=== PATIENT | male | born 1960 | race Caucasian/White ===

== ENCOUNTER 2017-02-08 22:47 | Emergency (ER) | payer BC ==
[2017-02-08 23:08] VITALS: BP 95/64
[2017-02-08] MEDS ORDERED: Clindamycin HCl 150 MG Cap PO ONE (23:13)
--- NOTE | 2017-02-08 23:19 | EDM.PDOC ---
ED HPI Skin/Rash - General Chief Complaint: Skin Complaint Stated Complaint: R LEG SWELLING Time Seen by Provider: 02/08/17 23:14 Source: Reports: Patient History Limitations: Reports: No limitations - History of Present Illness INITIAL COMMENTS - FREE TEXT/NARRATIVE: long h/o itchy rash seen many docs and used many Rx. states eucerin & cortisone cream work but out of. - Related Data Allergies Allergy/AdvReac Type Severity Reaction Status Date / Time amoxicillin Allergy Cannot Verified 04/27/15 18:35 Remember clavulanic acid Allergy Cannot Verified 02/08/17 23:00 [From Augmentin] Remember Home Meds: Ambulatory Orders Medication Instructions Recorded Confirmed Ibuprofen [Motrin] 400 mg PO ASDIRECTED PRN 04/27/15 04/27/15 Past Medical History - Past Health History Medical/Surgical History: Denies Medical/Surgical History Cardiovascular History: Reports: [place] Other Gastrointestinal History: inguinal hernia Musculoskeletal History: Reports: Osteoarthritis, Other (see below) Other Musculoskeletal History: fracture left wrist - Infectious Disease History Infectious Disease History: Reports: None - Past Surgical History HEENT Surgical History: Reports: Tonsillectomy Social & Family History - Family History Family Medical History: Noncontributory - Tobacco Use Smoking Status *Q: Never Smoker Second Hand Smoke Exposure: No - Caffeine Use Caffeine Use: Reports: Soda - Recreational Drug Use Recreational Drug Use: No ED ROS GENERAL - Review of Systems Review Of Systems: ROS reveals no pertinent complaints other than HPI. ED EXAM, SKIN/RASH Exam: See Below Exam Limited By: No limitations General Appearance: alert, WD/WN, mild distress, other (itch) Ears: hearing grossly normal Throat/Mouth: Normal voice, No airway compromise Head: atraumatic Neck: supple, non-tender Respiratory/Chest: no respiratory distress Cardiovascular: regular rate, rhythm GI/Abdominal: soft, non tender Neurological: alert, oriented, normal cognition, normal gait, no motor/sensory deficits Psychiatric: normal affect, normal mood Skin: Rash, Other (dried pruritic) Location, Skin: lower extremity, right Associated features: warmth, inflammation Lymphatic: no adenopathy Course - Vital Signs Last Recorded V/S: Last Vital Signs Temp 36.7 C 02/08/17 23:05 Pulse 86 02/08/17 23:05 Resp 16 02/08/17 23:05 BP 95/64 02/08/17 23:05 Pulse Ox 98 02/08/17 23:05 - Orders/Labs/Meds Orders: Active Orders 24 hr Category Date Time Status Clindamycin HCl [Cleocin] Med 02/08/17 23:13 Once 150 mg PO ONETIME ONE Departure - Departure Time of Disposition: 23:16 Disposition: Home, Self-Care 01 Condition: good Clinical Impression: Atopic dermatitis Qualifiers: Atopic dermatitis type: unspecified Qualified Code(s): L20.9 - Atopic dermatitis, unspecified Cellulitis Qualifiers: Site of cellulitis of extremity: lower extremity Laterality: right Instructions: Rash Forms: ED Department Discharge Additional Instructions: 1) don't scratch too much 2) continue with eucerin and cortisone creams 3) follow up at clinic or recheck as needed rx given: clindamycin 150mg qid x 40 - My Orders Last 24 Hours: My Active Orders 02/08/17 23:13 Clindamycin HCl [Cleocin] 150 mg PO ONETIME ONE - Assessment/Plan Last 24 Hours: My Active Orders 02/08/17 23:13 Clindamycin HCl [Cleocin] 150 mg PO ONETIME ONE
== END 2017-02-08 23:27 | disposition home or self-care (01) ==
LOC: DL.ED 22:47
DX: L03.115 Cellulitis of right lower limb (principal); L20.9 Atopic dermatitis, unspecified; I25.2 Old myocardial infarction; Z98.890 Other specified postprocedural states; Z88.8 Allergy status to other drugs, medicaments and biological substances
CPT/HCPCS: 99283; A9270

== ENCOUNTER 2017-09-30 22:51 | Emergency (ER) | payer BC ==
[2017-09-30] MEDS ORDERED: Ibuprofen 600 MG Tab PO ONE (23:55)
--- NOTE | 2017-10-01 01:37 | EDM.PDOC ---
ED HPI GENERAL MEDICAL PROBLEM - General Chief Complaint: Back Pain or Injury Stated Complaint: BACK AND ANKLE PAIN [phone] Time Seen by Provider: 10/01/17 00:30 Source of Information: Reports: Patient History Limitations: Reports: No Limitations - History of Present Illness INITIAL COMMENTS - FREE TEXT/NARRATIVE: ED with c/o low back pain, chronic, worse after fall on ice one month ago. Since fall has had intermittent numbness radiating down left outer leg. Worse tonight. Has been seen by chiroproactor but not noted any change in pain. Has no PCP and not seen in clinic. Occasional use of ibuprofen. No fever or chills , no Lower Back Pain Score (Numeric/FACES): 7 - Related Data Allergies Allergy/AdvReac Type Severity Reaction Status Date / Time amoxicillin Allergy Cannot Verified 09/30/17 23:45 Remember clavulanic acid Allergy Cannot Verified 09/30/17 23:45 [From Augmentin] Remember Past Medical History - Past Health History Medical/Surgical History: Denies Medical/Surgical History HEENT History: Reports: Impaired Vision Cardiovascular History: Reports: [place] Gastrointestinal History: Reports: Other (See Below) Other Gastrointestinal History: inguinal hernia Musculoskeletal History: Reports: Fracture, Osteoarthritis, Other (See Below) Other Musculoskeletal History: Fx left wrist. - Infectious Disease History Infectious Disease History: Reports: None - Past Surgical History HEENT Surgical History: Reports: Tonsillectomy Social & Family History - Family History Family Medical History: Noncontributory - Tobacco Use Smoking Status *Q: Never Smoker Second Hand Smoke Exposure: No - Caffeine Use Caffeine Use: Reports: Soda - Recreational Drug Use Recreational Drug Use: No ED ROS GENERAL - Review of Systems Review Of Systems: See Below Constitutional: Reports: No Symptoms HEENT: Reports: No Symptoms Respiratory: Reports: No Symptoms Cardiovascular: Reports: No Symptoms Endocrine: Reports: No Symptoms GI/Abdominal: Reports: No Symptoms Musculoskeletal: Reports: Back Pain (left lumbar ) Skin: Reports: No Symptoms Neurological: Reports: Numbness, Paresthesia (outer leg) ED EXAM,LOWER BACK PAIN/INJURY - Physical Exam Exam: See Below Exam Limited By: No Limitations General Appearance: Alert, No Apparent Distress Eye Exam: Bilateral Eye: EOMI Ears: Normal External Exam Nose: Normal Inspection Throat/Mouth: Normal Voice Head: Atraumatic, Normocephalic Neck: Normal Inspection Respiratory/Chest: No Respiratory Distress Cardiovascular: Normal Peripheral Pulses Back Exam: Paraspinal Tenderness (left lumbar), Vertebral Tenderness (mild lumbar with deep palpation) Neurological: Alert, Normal Mood/Affect, Normal Dorsiflexion, Normal Plantar Flexion, No Motor/Sensory Deficits, Oriented x 3, Straight Leg Raise (L). No: Abnormal Sensation, Straight Leg Raise (R), Difficulty Walking Psychiatric: Normal Affect Skin Exam: Warm, Dry, Intact, Normal Color Course - Vital Signs Last Recorded V/S: Last Vital Signs Temp 97.2 F 10/01/17 00:47 Pulse 62 10/01/17 00:47 Resp 16 10/01/17 00:47 BP 107/71 10/01/17 00:47 Pulse Ox 99 10/01/17 00:47 - Orders/Labs/Meds Orders: Active Orders 24 hr Category Date Time Status Lumbar Spine wo Cont [CT] Urgent Exams 10/01/17 01:13 Taken Meds: Medications Discontinued Medications Generic Name Dose Route Start Last Admin Trade Name Kieranq PRN Reason Stop Dose Admin Ibuprofen 600 mg 09/30/17 23:55 09/30/17 23:59 Motrin PO 09/30/17 23:56 600 mg ONETIME ONE Administration Departure - Departure Time of Disposition: 02:52 Disposition: Home, Self-Care 01 Condition: Good Clinical Impression: L4-L5 disc bulge - Discharge Information Instructions: Back Pain, Adult, [id number] Referrals: PCP,None [Primary Care Provider] - Forms: ED Department Discharge Additional Instructions: follow up in clinic L4-L5 disc bulge If weakness, unable to control bowel or bladder follow up urgently prednisone 20mg x 5 days then 10mg x 5 days tylenol every 4 hours as needed do not take ibuprofen while taking prednisone - My Orders Last 24 Hours: My Active Orders 10/01/17 01:13 Lumbar Spine wo Cont [CT] Urgent - Assessment/Plan Last 24 Hours: My Active Orders 10/01/17 01:13 Lumbar Spine wo Cont [CT] Urgent
[2017-10-01] MEDS ORDERED: predniSONE 20 MG Tab PO ONE (02:55)
[2017-10-01 03:07] VITALS: BP 107/77
== END 2017-10-01 03:10 | disposition home or self-care (01) ==
LOC: DL.ED 22:51
DX: M51.86 Other intervertebral disc disorders, lumbar region (principal); Z88.1 Allergy status to other antibiotic agents
CPT/HCPCS: 72131; 99283; A9270

== ENCOUNTER 2019-03-10 14:34 | Emergency (ER) | payer BC ==
[2019-03-10 14:50] VITALS: BP 99/73
--- NOTE | 2019-03-10 15:40 | CR ---
Clinical history: 58-year-old male "smash" right ankle between trailer and lawnmower. Interpretation: Asymmetric pronounced soft tissue swelling over the lateral malleolus. No underlying fracture or dislocation right ankle. Prominent heel spurs at the insertion Achilles tendon and plantar aponeurosis on the os calcis. CONCLUSION: Right Ankle sprain. No fractures. Heel spurs.
--- NOTE | 2019-03-10 15:48 | EDM.PDOC ---
ED HPI GENERAL MEDICAL PROBLEM - General Chief Complaint: Lower Extremity Injury/Pain Stated Complaint: INJURED RT LEG Time Seen by Provider: 03/10/19 15:09 Source of Information: Reports: Patient, RN, RN Notes Reviewed History Limitations: Reports: No Limitations - History of Present Illness INITIAL COMMENTS - FREE TEXT/NARRATIVE: Patient presents to ER with complaint of right lower leg pain after getting leg smashed between a crane assembler and a trailer. States it happened about 1/2 hour prior to arrival. Rates pain 05/22. Onset: Today Duration: Constant Location: Reports: Lower Extremity, Right Quality: Reports: Ache Severity: Mild Improves with: Reports: None Worsens with: Reports: None Associated Symptoms: Reports: No Other Symptoms Right Ankle Pain Score (Numeric/FACES): 8 - Related Data Allergies Allergy/AdvReac Type Severity Reaction Status Date / Time amoxicillin Allergy Cannot Verified 03/10/19 14:47 Remember clavulanic acid Allergy Cannot Verified 03/10/19 14:47 [From Augmentin] Remember Home Meds: Home Meds Aspirin [Adult Low Dose Aspirin EC] 81 mg PO DAILY 09/01/18 [History] Past Medical History - Past Health History Medical/Surgical History: Denies Medical/Surgical History HEENT History: Reports: Impaired Vision Cardiovascular History: Reports: [place] Respiratory History: Reports: None Gastrointestinal History: Reports: Other (See Below) Other Gastrointestinal History: inguinal hernia Genitourinary History: Reports: None Musculoskeletal History: Reports: Fracture, Osteoarthritis, Other (See Below) Other Musculoskeletal History: Fx left wrist. Neurological History: Reports: None Psychiatric History: Reports: None Endocrine/Metabolic History: Reports: None Hematologic History: Reports: None Immunologic History: Reports: None Oncologic (Cancer) History: Reports: None Dermatologic History: Reports: None - Infectious Disease History Infectious Disease History: Reports: None - Past Surgical History Head Surgeries/Procedures: Reports: None HEENT Surgical History: Reports: Tonsillectomy GI Surgical History: Reports: Hernia, Inguinal Social & Family History - Family History Family Medical History: Noncontributory - Tobacco Use Smoking Status *Q: Never Smoker Second Hand Smoke Exposure: No - Caffeine Use Caffeine Use: Reports: None - Recreational Drug Use Recreational Drug Use: No Review of Systems - Review of Systems Review Of Systems: ROS reveals no pertinent complaints other than HPI. ED EXAM, GENERAL - Physical Exam Exam: See Below Exam Limited By: No Limitations General Appearance: Alert, WD/WN, No Apparent Distress Eye Exam: Bilateral Eye: EOMI, Normal Inspection, PERRL Ears: Normal External Exam, Normal Canal, Hearing Grossly Normal, Normal TMs Nose: Normal Inspection, Normal Mucosa, No Blood Throat/Mouth: Normal Inspection, Normal Lips, Normal Teeth, Normal Gums, Normal Oropharynx, Normal Voice, No Airway Compromise Head: Atraumatic, Normocephalic Neck: Normal Inspection, Supple, Non-Tender, Full Range of Motion Respiratory/Chest: No Respiratory Distress, Lungs Clear, Normal Breath Sounds, No Accessory Muscle Use, Chest Non-Tender Cardiovascular: Normal Peripheral Pulses, Regular Rate, Rhythm, No Edema, No Gallop, No JVD, No Murmur, No Rub GI/Abdominal: Normal Bowel Sounds, Soft, Non-Tender, No Organomegaly, No Distention, No Abnormal Bruit, No Mass (Male) Exam: Deferred Rectal (Males) Exam: Deferred Back Exam: Normal Inspection, Full Range of Motion, NT Extremities: Normal Inspection, Normal Range of Motion, Non-Tender, Normal Capillary Refill, No Pedal Edema Neurological: Alert, Oriented, CN II-XII Intact, Normal Cognition, Normal Gait, Normal Reflexes, No Motor/Sensory Deficits Psychiatric: Anxious Skin Exam: Other (2 cm ecchymosis /abrasion to anterior right garcia. ) Lymphatic: No Adenopathy Course - Vital Signs Last Recorded V/S: Last Vital Signs Temp 96.4 F 03/10/19 14:48 Pulse 82 03/10/19 14:48 Resp 16 03/10/19 14:48 BP 99/73 03/10/19 14:48 Pulse Ox 99 03/10/19 14:48 - Orders/Labs/Meds Meds: Medications Discontinued Medications Generic Name Dose Route Start Last Admin Trade Name Freq PRN Reason Stop Dose Admin Ketorolac Tromethamine 30 mg 03/10/19 15:48 Toradol IM 03/10/19 15:49 ONETIME ONE - Radiology Interpretation Free Text/Narrative:: Right ankle xray: Right ankle sprain, no fractures. Heel spurs See rad report Departure - Departure Time of Disposition: 15:46 Disposition: Home, Self-Care 01 Condition: Fair Clinical Impression: Contusion Qualifiers: Encounter type: initial encounter Contusion area: lower leg Laterality: right Qualified Code(s): S80.11XA - Contusion of right lower leg, initial encounter - Discharge Information *PRESCRIPTION DRUG MONITORING PROGRAM REVIEWED*: No *COPY OF PRESCRIPTION DRUG MONITORING REPORT IN PATIENT BILLY: No Instructions: Contusion, [id number] Forms: ED Department Discharge Additional Instructions: Elevate and ice the area as tolerated Follow up with your primary care facility if no improvement
[2019-03-10] MEDS: Ketorolac 30 MG/ML SDV IM ONE (15:52)
== END 2019-03-10 15:56 | disposition home or self-care (01) ==
LOC: DL.ED 14:34
DX: S80.11XA Contusion of right lower leg, initial encounter (principal); I25.2 Old myocardial infarction; W23.0XXA Caught, crushed, jammed, or pinched between moving objects, initial encounter; Z88.1 Allergy status to other antibiotic agents; Z88.8 Allergy status to other drugs, medicaments and biological substances; Z79.82 Long term (current) use of aspirin
CPT/HCPCS: 73610; 96372; 99283; J1885

== ENCOUNTER 2020-05-24 05:24 | Day surgery (SDC) | payer SELFPAY ==
[2020-05-24] MEDS ORDERED: Midazolam 1 MG/ML 2 ML SDV IV ONE ×4 (05:25→06:43)
[2020-05-24] MEDS ORDERED: fentaNYL 100 MCG/2 ML SDV IV ONE ×3 (05:25→06:34)
[2020-05-24] MEDS ORDERED: Dextrose 5%-0.45% NaCl 1,000 ML IV SCH (06:15)
[2020-05-24] MEDS ORDERED: fentaNYL 100 MCG/2 ML SDV ONE (06:16)
[2020-05-24] MEDS ORDERED: Midazolam 1 MG/ML 2 ML SDV ONE (06:16)
--- NOTE | 2020-05-24 08:27 | OR ---
DATE: 05/24/2020 PROCEDURE: Total colonoscopy. INSTRUMENT USED: PCF-H190DL Olympus video colonoscope. PREMEDICATIONS: Fentanyl 100 mcg intravenous, Versed 2.5 mg intravenous, nasal O2 cannula. The procedure was done under pulse oximetry, BP recording, and cardiac cath lab technologist. INDICATION: The patient with rectal bleeding. Colonoscopic examination is done for detection of any polypoid lesions and removal, endoscopic hemostasis therapy if needed. DESCRIPTION OF PROCEDURE: Initial rectal exam was unremarkable. Rigid anoscopy was normal. The colonoscope was passed with ease up to the ileocecal area. Photographs were taken of the normal-appearing cecum identified by landmarks of appendiceal orifice and double-bulged ileocecal folds. No bleeding was noted from any of the visualized areas at the commencement of the examination. The bowel preparation was found to be adequate, [place] scale 3 in all the regions. Total score 9. No stricture. No vascular ectasia. No large isolated ulcerations seen. No evidence of diffuse inflammatory bowel disease in the form of friability, contact bleeding, or ulcerations. No polyp or tumor mass identified. Probing the proximal sides of folds and flexures using adequate distention and clearing up the stool material, withdrawal of the scope was made, cecum to rectum time over 6 minutes. No bleeding was noted from any of the visualized areas at the completion of examination. IMPRESSION: Normal study. The patient tolerated the procedure well. [facility] /[id number]
[2020-05-24 09:25] VITALS: BP 108/69; PULSE 57
== END 2020-05-24 09:05 | disposition home or self-care (01) ==
LOC: DL.ENDO 05:24
PROVIDERS: ATTEND Internal Medicine Gastroenterology
DX: K62.5 Hemorrhage of anus and rectum (principal); D70.9 Neutropenia, unspecified; Z98.890 Other specified postprocedural states; Z90.49 Acquired absence of other specified parts of digestive tract; Z88.8 Allergy status to other drugs, medicaments and biological substances; Z87.39 Personal history of other diseases of the musculoskeletal system and connective tissue
CPT/HCPCS: J2250; J3010; J7042

== ENCOUNTER 2021-07-22 08:56 | Emergency (ER) | payer BC, SELFPAY ==
[2021-07-22] MEDS ORDERED: Sodium Chloride 0.9% 10 ML Syringe FLUSH PRN (08:59)
[2021-07-22] MEDS ORDERED: Nitroglycerin 0.4 MG Tab.SL SL PRN (09:06)
[2021-07-22] MEDS ORDERED: Aspirin 81 MG Tab.Chew PO ONE (09:06)
[2021-07-22 09:15] VITALS: BP 100/72; PULSE 109
[2021-07-22 09:45] LABS: PTT,PARTIAL THROMBOPLSTIN TIME 30.2 SEC (22.0-34.0)
[2021-07-22 09:48] LABS: ANION GAP 13.1 mEq/L (7-13); CHLORIDE,CL 99 mmol/L (98-107); SODIUM,NA 135 mmol/L (136-145)
--- NOTE | 2021-07-22 09:57 | CR ---
PROCEDURE INFORMATION: Exam: XR Chest Exam date and time: 07/22/2021 9:12 AM Age: 61 years old Clinical indication: Other: Chest pain TECHNIQUE: Imaging protocol: XR of the chest. Views: 1 view. COMPARISON: No relevant prior studies available. FINDINGS: Lungs: Unremarkable. No consolidation. Pleural spaces: Unremarkable. No pleural effusion. No pneumothorax. Heart/Mediastinum: Unremarkable. No cardiomegaly. Bones/joints: Unremarkable. IMPRESSION: No acute findings.
--- NOTE | 2021-07-22 10:32 | EDM.PDOC ---
Scribed by Patience Bradford 07/22/21 0942 for Walter Henriquez MD ED HPI GENERAL MEDICAL PROBLEM - General Chief Complaint: Chest Pain Stated Complaint: [id number] CHEST PAIN Time Seen by Provider: 07/22/21 09:06 Source of Information: Reports: Patient, RN, RN Notes Reviewed History Limitations: Reports: No Limitations - History of Present Illness INITIAL COMMENTS - FREE TEXT/NARRATIVE: Patient presents to ED by POV with complaint of chest pain. 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 Patient states that he has not taken anything for pain. States that he thinks that he has had an HI in the past, but has never seen a lehr operator and does not take any medications. Patient rates pain at a 4/10. States that he has had a non- productive cough for 3 days. He has not had a COVID vaccine. Now in ER pt states the pain currently at at the RUQ of the abdomen, and radiates to the right middle back. He denies shortness of breath, nausea, or vomiting. Onset: Today Duration: Improving Location: Reports: Chest, Abdomen Quality: Reports: Ache Severity: Mild Improves with: Reports: None Worsens with: Reports: None Associated Symptoms: Reports: No Other Symptoms Left Chest Pain Score (Numeric/FACES): 6 - Related Data Allergies Allergy/AdvReac Type Severity Reaction Status Date / Time chicken derived Allergy Mild Shortness Verified 07/22/21 09:08 of Breath amoxicillin Allergy Cannot Verified 07/22/21 09:08 Remember clavulanic acid Allergy Cannot Verified 07/22/21 09:08 [From Augmentin] Remember Past Medical History - Past Health History Medical/Surgical History: Denies Medical/Surgical History HEENT History: Reports: Impaired Vision Other HEENT History: wears glasses. has upper dentures but does not wear Cardiovascular History: Reports: HI (Undiagnosed (pt believes he had an HI but has never seen a lehr operator)) Respiratory History: Reports: Asthma Gastrointestinal History: Reports: Other (See Below) Other Gastrointestinal History: Inguinal hernia age 6 Genitourinary History: Reports: None Musculoskeletal History: Reports: Arthritis, Fracture, Osteoarthritis, Other (See Below) Other Musculoskeletal History: Fx left wrist. left knee Neurological History: Reports: Concussion Other Neuro History: Concussion age 4-6 Psychiatric History: Reports: None Endocrine/Metabolic History: Reports: None Hematologic History: Reports: None, Other (See Below) Other Hematologic History: HX OF NEUTROPENIA Immunologic History: Reports: None Oncologic (Cancer) History: Reports: None Dermatologic History: Reports: Eczema - Infectious Disease History Infectious Disease History: Reports: Chicken Pox, Measles, Mumps - Past Surgical History Head Surgeries/Procedures: Reports: None HEENT Surgical History: Reports: Tonsillectomy Cardiovascular Surgical History: Reports: None GI Surgical History: Reports: EGD, Esophageal Dilatation, Hernia, Inguinal Other Female Surgeries/Procedures: left breast biopsy Male Surgical History: Reports: Other (See Below) Endocrine Surgical History: Reports: None Neurological Surgical History: Reports: None Musculoskeletal Surgical History: Reports: Shoulder Surgery, Other (See Below) Other Musculoskeletal Surgeries/Procedures:: back surgery Nov 2017. left great toe surgery Oncologic Surgical History: Reports: None Social & Family History - Family History Family Medical History: No Pertinent Family History - Tobacco Use Tobacco Use Status *Q: Never Tobacco User - Caffeine Use Caffeine Use: Reports: Soda Other Caffeine Use: 1-2 can daily - Living Situation & Occupation Occupation: Employed ED ROS GENERAL - Review of Systems Review Of Systems: Comprehensive ROS is negative, except as noted in HPI. ED EXAM, GENERAL - Physical Exam Exam: See Below Exam Limited By: No Limitations General Appearance: Alert, WD/WN, No Apparent Distress Eye Exam: Bilateral Eye: Normal Inspection Ears: Hearing Grossly Normal Nose: Normal Inspection, Normal Mucosa, No Blood Throat/Mouth: Normal Inspection, Normal Lips, Normal Voice, No Airway Compromise Head: Atraumatic, Normocephalic Neck: Normal Inspection, Non-Tender, Full Range of Motion Respiratory/Chest: No Respiratory Distress, Lungs Clear, Normal Breath Sounds, No Accessory Muscle Use, Chest Non-Tender Cardiovascular: Normal Peripheral Pulses, Regular Rate, Rhythm, No Edema, No Gallop, No JVD, No Murmur, No Rub GI/Abdominal: Normal Bowel Sounds, Soft, No Organomegaly, No Distention, No Abnormal Bruit, Tender (RUQ). No: Guarding, Rigid, Rebound (Male) Exam: Deferred Rectal (Males) Exam: Deferred Back Exam: Full Range of Motion. No: CVA Tenderness (L), CVA Tenderness (R), Vertebral Tenderness Extremities: Normal Inspection, Normal Range of Motion, Non-Tender, Normal Capillary Refill, No Pedal Edema Neurological: Alert, Oriented, CN II-XII Intact, Normal Cognition, No Motor/Sensory Deficits Psychiatric: Normal Affect, Normal Mood Skin Exam: Warm, Dry, Intact, Normal Color, No Rash #1 Interpretation EKG Date: 07/22/21 Time: 09:02 Rhythm: Other (sinus tachycardia) Rate (Beats/Min): 103 Jay: Normal P-Wave: Present QRS: Other (left posterior fascicular block) ST-T: Normal QT: Prolonged (borderline prolonged QT intervasl) Course - Vital Signs Last Recorded V/S: Last Vital Signs Temp 99.5 F 07/22/21 09:08 Pulse 109 H 07/22/21 09:08 Resp 14 07/22/21 09:08 BP 100/72 07/22/21 09:08 Pulse Ox 99 07/22/21 09:08 - Orders/Labs/Meds Orders: Active Orders 24 hr Category Date Time Status Peripheral IV Care [RC] . DIRECTED Care 07/22/21 09:00 Active CORONAVIRUS COVID-19 BE [MOLEC] Stat Lab 07/22/21 09:39 Received Sodium Chloride 0.9% [Saline Flush] Med 07/22/21 08:59 Active 10 ml FLUSH ASDIRECTED PRN Peripheral IV Insertion Adult [OM.PC] Stat Oth 07/22/21 08:59 Ordered Medication Orders Sodium Chloride (Sodium Chloride 0.9% 10 Ml Syringe) 10 ml FLUSH ASDIRECTED PRN PRN Reason: Keep Vein Open Last Admin: 07/22/21 09:22 Dose: 10 ml Documented by: DARIN Labs: Laboratory Tests 07/22/21 07/22/21 07/22/21 Range/Units 09:20 09:20 09:20 WBC 4.7 L (5.0-10.0) 10^3/uL RBC 4.62 (4.6-6.2) 10^6/uL Hgb 13.8 L (14.0-18.0) g/dL Hct 38.2 L (40.0-54.0) % MCV 82.7 (80-100) fL MCH 29.9 (27.0-34.0) pg MCHC 36.1 H (33.0-35.0) g/dL Plt Count 130 L (150-450) 10^3/uL Neut % (Auto) 55.6 (42.2-75.2) % Lymph % (Auto) 25.6 (20.5-50.1) % [place] % (Auto) 15.0 H (2-8) % Eos % (Auto) 3.6 H (1.0-3.0) % Baso % (Auto) 0.2 (0.0-1.0) % PT 10.9 (9.0-12.0) SEC INR 1.1 (0.9-1.2) APTT 30.2 (22.0-34.0) SEC D-Dimer, Quantitative 364 (0-400) ng/mL Sodium 135 L (136-145) mmol/L Potassium 4.1 (3.5-5.1) mmol/L Chloride 99 (98-107) mmol/L Carbon Dioxide 27 (21-32) mmol/L Anion Gap 13.1 H (7-13) mEq/L BUN 17 (7-18) mg/dL Creatinine 1.11 (0.70-1.30) mg/dL Est Cr Clr Drug Dosing 76.71 mL/min Estimated GFR (MDRD) > 60 BUN/Creatinine Ratio 15.3 (No establ ref range) Glucose 80 (70-99) mg/dL Calcium 8.7 (8.5-10.1) mg/dL Total Bilirubin 1.1 H (0.2-1.0) mg/dL AST 28 (15-37) U/L ALT 24 (16-63) U/L Alkaline Phosphatase 48 (46-116) U/L Troponin I High Sens 8 (<=76) pg/mL C-Reactive Protein 1.7 H (0.0-0.9) mg/dL Total Protein 7.4 (6.4-8.2) g/dL Albumin 4.1 (3.4-5.0) g/dL Globulin 3.3 Albumin/Globulin Ratio 1.2 Amylase 68 (25-115) U/L Lipase 188 (73-393) U/L Meds: Medications Generic Name Dose Route Start Last Admin Trade Name Freq PRN Reason Stop Dose Admin Sodium Chloride 10 ml 07/22/21 08:59 07/22/21 09:22 Sodium Chloride 0.9% 10 Ml Syringe FLUSH 10 ml ASDIRECTED PRN Administration Keep Vein Open Discontinued Medications Generic Name Dose Route Start Last Admin Trade Name Freq PRN Reason Stop Dose Admin Aspirin 324 mg 07/22/21 09:06 07/22/21 09:21 Aspirin 81 Mg Tab.Chew PO 07/22/21 09:07 324 mg ONETIME ONE Administration Nitroglycerin 0.4 mg 07/22/21 09:06 Nitroglycerin 0.4 Mg Tab.Sl SL Q5M PRN Chest Pain - Radiology Interpretation Free Text/Narrative:: [facility] [place] [facility] Final Radiology Report Call: [phone] assistance Online chat: [email or web address] Name: ABEL DIOP Age: 61Years M Date: 07/22/2021 SSN: -- : [id number] Study: CR CHEST 1V FRONTAL Requesting Physician: WALTER HENRIQUEZ Images: 1 Addl Studies: Provided Clinical History: chest pain Contrast: Contrast Medium: Contrast Amount: Contrast Method: CONFIDENTIALITY STATEMENT This report is intended only for use by the referring physician, and only in accordance with law. If you received this in error, call [phone]. Page 1 of 1 PROCEDURE INFORMATION: Exam: XR Chest Exam date and time: 07/22/2021 9:12 AM Age: 61 years old Clinical indication: Other: Chest pain TECHNIQUE: Imaging protocol: XR of the chest. Views: 1 view. COMPARISON: No relevant prior studies available. FINDINGS: Lungs: Unremarkable. No consolidation. Pleural spaces: Unremarkable. No pleural effusion. No pneumothorax. Heart/Mediastinum: Unremarkable. No cardiomegaly. Bones/joints: Unremarkable. IMPRESSION: No acute findings. Thank you for allowing us to participate in the care of your patient. Dictated and Authenticated by: Gallo Bailon MD 07/22/2021 9:57 AM Central Time ([place] & [place]) - Re-Assessments/Exams Free Text/Narrative Re-Assessment/Exam: 07/22/21 10:27 Pt's pain has resolved without intervention. The pain being at the RUQ, radiating to the lower right shoulder blade, and T-bili 1.1 with normal Troponin and no ischemic changes on EKG, is most consistent with biliary colic. Pt admits to eating a breakfast of fried foods early this morning. Plan to d/c pt home with instructions of avoid greasy/fried foods and f/u in clinic for a gallbladder evaluation. Departure - Departure Time of Disposition: 10:30 Disposition: Home, Self-Care 01 Condition: Good Clinical Impression: Nonspecific chest pain, Biliary colic Instructions: Nonspecific Chest Pain, Adult, [id number], Biliary Colic, Adult Forms: ED Department Discharge Additional Instructions: Low fat diet. Avoid greasy, high fat, and fried foods. Follow up in clinic next week for a gallbladder evaluation. Sepsis Event Note (ED) - Focused Exam Vital Signs: Vital Signs Temp Pulse Resp BP Pulse Ox 07/22/21 09:08 99.5 F 109 H 14 100/72 99 - My Orders Last 24 Hours: My Active Orders 07/22/21 08:59 Sodium Chloride 0.9% [Saline Flush] 10 ml FLUSH ASDIRECTED PRN Peripheral IV Insertion Adult [OM.PC] Stat 07/22/21 09:00 Peripheral IV Care [RC] . DIRECTED 07/22/21 09:39 CORONAVIRUS COVID-19 BE [MOLEC] Stat - Assessment/Plan Last 24 Hours: My Active Orders 07/22/21 08:59 Sodium Chloride 0.9% [Saline Flush] 10 ml FLUSH ASDIRECTED PRN Peripheral IV Insertion Adult [OM.PC] Stat 07/22/21 09:00 Peripheral IV Care [RC] . DIRECTED 07/22/21 09:39 CORONAVIRUS COVID-19 BE [MOLEC] Stat I have read and agree with the documentation that has been completed regarding this visit. By signing this record, I attest that the documentation was completed in my physical presence and is an accurate record of the encounter.
== END 2021-07-22 10:34 | disposition home or self-care (01) ==
LOC: DL.ED 08:56
DX: R07.9 Chest pain, unspecified (principal); K80.50 Calculus of bile duct without cholangitis or cholecystitis without obstruction; I25.2 Old myocardial infarction; Z88.0 Allergy status to penicillin; Z91.018 Allergy to other foods; Z20.822 Contact with and (suspected) exposure to COVID-19
CPT/HCPCS: 36415; 71045; 80053; 82150; 83690; 84484; 85025; 85379; 85610; 85730; 86140; 87635; 93005; 99285; A9270; U0002

== ENCOUNTER 2023-04-06 16:46 | Emergency (ER) | payer BC ==
[2023-04-06 17:22] VITALS: BP 116/76; PULSE 74
== END 2023-04-06 18:08 | disposition home or self-care (01) ==
LOC: DL.ED 16:46
DX: S09.90XA Unspecified injury of head, initial encounter (principal); I25.2 Old myocardial infarction; J45.909 Unspecified asthma, uncomplicated; Z88.0 Allergy status to penicillin; Z91.018 Allergy to other foods; W18.30XA Fall on same level, unspecified, initial encounter
CPT/HCPCS: 70450; 72125; 99283

== ENCOUNTER 2023-08-19 14:11 | Emergency (ER) | payer BC ==
[2023-08-19] MEDS ORDERED: Sodium Chloride 0.9% 10 ML Syringe FLUSH PRN (14:14)
[2023-08-19 14:42] LABS: BASOPHILS PERCENT AUTO 0.9 % (0.0-1.0); EOSINOPHILS PERCENT AUTO 5.6 % (1.0-3.0); HEMATOCRIT 36.7 % (40.0-54.0); HEMOGLOBIN 13.3 g/dL (14.0-18.0); LYMPHOCYTES PERCENT AUTO 40.1 % (20.5-50.1); MEAN CORPUSCULAR HEMOGLOBIN 30.1 pg (27.0-34.0); MEAN CORPUSCULAR HGB CONC 36.2 g/dL (33.0-35.0); MONOCYTES PERCENT AUTO 11.5 % (2-8); NEUTROPHILS PERCENT AUTO 41.9 % (42.2-75.2); PLATELET COUNT,PLT 177 10^3/uL (150-450); RED BLOOD CELL COUNT 4.42 10^6/uL (4.6-6.2); WHITE BLOOD CELL COUNT,WBC 5.4 10^3/uL (5.0-10.0)
[2023-08-19 14:53] LABS: PTT,PARTIAL THROMBOPLSTIN TIME 28.6 SEC (22.0-34.0)
[2023-08-19 15:00] LABS: LACTIC ACID 0.6 mmol/L (0.4-2.0)
[2023-08-19 15:04] LABS: B-TYPE NATRIURETIC PEPTIDE,BNP 20 pg/ml (0-100)
[2023-08-19 15:07] LABS: A/G RATIO 1.1; ALANINE AMINOTRANSFERASE,ALT 20 U/L (16-63); ALBUMIN 3.7 g/dL (3.4-5.0); ALKALINE PHOSPHATASE 54 U/L (46-116); ANION GAP 9.4 mEq/L (7-13); ASPARTATE AMNIOTRANSFERASE,AST 31 U/L (15-37); BILIRUBIN TOTAL 0.7 mg/dL (0.2-1.0); BLOOD UREA NITROGEN,BUN 16 mg/dL (7-18); BUN/CREATININE RATIO 18.6 (No establ ref range); C-REACTIVE PROTEIN 0.11 ng/dL (<=0.30); CALCIUM 8.8 mg/dL (8.5-10.1); CARBON DIOXIDE,CO2 28 mmol/L (21-32); CHLORIDE,CL 104 mmol/L (98-107); CREATININE 0.86 mg/dL (0.70-1.30); EST CRCL DRUG DOSING (CG) 93.64 mL/min; GLUCOSE RANDOM 85 mg/dL (70-99); POTASSIUM,K 4.4 mmol/L (3.5-5.1); PROTEIN TOTAL,TP 7.1 g/dL (6.4-8.2); SODIUM,NA 137 mmol/L (136-145)
[2023-08-19 15:09] LABS: ESTIMATED GFR 97 mL/min (>=60)
[2023-08-19 15:20] LABS: CORONAVIRUS COVID-19 NAA NEGATIVE (NEGATIVE); INFLUENZA A NAA NEGATIVE (NEGATIVE); INFLUENZA B NAA NEGATIVE (NEGATIVE); RESPIRATORY SYNCYTIAL VIR NAA NEGATIVE (NEGATIVE)
[2023-08-19 16:02] VITALS: BP 110/78; PULSE 68
== END 2023-08-19 17:18 | disposition home or self-care (01) ==
LOC: DL.ED 14:11
DX: R07.89 Other chest pain (principal); M25.512 Pain in left shoulder; M25.522 Pain in left elbow; I25.2 Old myocardial infarction; Z91.018 Allergy to other foods; Z88.0 Allergy status to penicillin; Z20.822 Contact with and (suspected) exposure to COVID-19
CPT/HCPCS: 0241U; 36415; 71045; 80053; 83605; 83735; 83880; 84145; 84484; 85025; 85610; 85730; 86140; 93005; 93010; 99284; 99285; J3490